=== PATIENT | female | born 1995 | race African-American/Black ===

== ENCOUNTER 2018-12-24 08:26 | Outpatient (CLI) | payer OTHER ==
--- NOTE | 2018-12-24 10:12 | ULT ---
ULTRASOUND OBSTETRICAL COMPLETE: DATE: 12/24/18 HISTORY: Z34.02 encounter for supervision of normal first in second trimester. complete anatomy sizes and dates and cervical length. FINDINGS: number: [place]. lie: Breech. Maternal cervix: 3.5 cm in length and closed. Placenta: Posterior. No placenta previa. Amniotic fluid volume: JORGE L 11.5 cm. heart rate: 150 bpm. The following anatomy is visualized, with no evidence of anomalies: Head, lateral ventricles, cerebellum, nose and lips, spine, upper limbs, lower limbs, four chamber he art, umbilical cord, cord insertion, stomach, kidneys, and bladder. biometry: Head circumference (HC): 16.8 cm 19w 3d Biparietal diameter (BPD): 4.5 cm 19w 4d Abdominal circumference (AC): 13.6 cm 19w 0d Femur length (FL): 3.1 cm 19w 4d Average ultrasound age (AUA): 19w 2d Estimated date of delivery (GABRIEL): 05/18/2019. Last menstrual period (LMP): 08/06/18. Gestational age by LMP: 20w 0d. Estimated weight (EFW): 285 g +/- 42 g (0 lb 10 oz +/- 1 oz). IMPRESSION: 1. Live second trimester intrauterine gestation. 2. Estimated gestational age of 19 weeks, 2 days. 3. Breech lie. 4. No anatomical abnormalities. melany [] POS: [facility]
== END 2018-12-24 08:27 | disposition home or self-care (01) ==
LOC: SCSULT 08:26
PROVIDERS: ATTEND Family Medicine
DX: Z34.02 Encounter for supervision of normal first pregnancy, second trimester (principal); O32.1XX0 Maternal care for breech presentation, not applicable or unspecified; Z3A.19 19 weeks gestation of pregnancy
CPT/HCPCS: 76805

== ENCOUNTER 2019-04-25 13:59 | Day surgery (SDC) | payer OTHER ==
[2019-04-25] MEDS ORDERED: hydrALAZINE 20 MG/ML VIAL SLOW IVP PRN (14:16)
[2019-04-25 14:42] LABS: Amnisure Test No Membranes Rupture (No Rupture)
[2019-04-25 14:43] LABS: Amnisure Internal Control QC ACCEPTABLE (ACCEPTABLE)
[2019-04-25 14:59] VITALS: BMI 26.3
--- NOTE | 2019-04-25 15:20 | PDOC.LDHP ---
Labor and Delivery H&P Chief complaint: loss of fluid HPI: 23 yo F presents for concern of ROM. Pt reports leaking of fluid last night and continued to this am. Pt reports clear fluid. No recent intercourse. Reports vaginal discharge for last 2 weeks. No vaginal bleeding, ctx, pt reports pos movement. No CP, SOB. Current gestational age (weeks): 37 Dating criteria: last menstrual period Grav: 1 Para: 0 Current complications: none Abnormal US findings: No Current medications: pre-nayeli vitamins, iron Previous surgical history: none Allergies/Adverse Reactions: Allergies Allergy/AdvReac Type Severity Reaction Status Date / Time ondansetron [From Zofran] AdvReac Mild Rash Verified 04/25/19 14:44 promethazine [From Phenergan] AdvReac Mild Rash Verified 04/25/19 14:44 Social history: none - Physical Exam Vital signs reviewed and normal: yes General: NAD Heart: RRR Lungs: CTAB Abdomen: gravid Extremeties: no edema FHT: category 1, variability present [place] contractions every: rare - Vaginal Exam cm dilated: 1 Effacement: 25% Station: -3 - OB Labs Blood type: B RH: positive Antibody Screen: negative HIV: negative RPR: negative HEPSAg: negative GBS: negative Urine drug screen: positive (cannabinoids) Rubella: immune - Assessment 1) Vaginal discharge - Plan Plan: other -: 1) Vaginal discharge - concern for ROM; however, no posterior fornix pooling on exam and amnisure negative - check VP3 and plan for DC to home with OP f/u - return precautions reviewed Addendum - Attending - Attending Attestation Date/Time: 04/27/19 0939 I personally evaluated the patient and discussed the management with Dr. Donaldson I agree with the History, Examination, Assessment and Plan documented above with any addition or exceptions noted below. Pt of Dr Villeda. Here for LOF. SSE - neg for pooling, amnisure neg. No evidence of labor. vital sign wnl 111/70 83 18 100% 98.8 fht. baseline 130s mod ltv, + accels-cat one Fetus with reactive nst no evidence of ROM or labor d/c f/u with DR Villeda
== END 2019-04-25 17:28 | disposition home health service (06) ==
LOC: L&D/OP 13:59
PROVIDERS: ATTEND Family Medicine
DX: O99.89 Other specified diseases and conditions complicating pregnancy, childbirth and the puerperium (principal); N89.8 Other specified noninflammatory disorders of vagina; Z3A.37 37 weeks gestation of pregnancy; Z88.8 Allergy status to other drugs, medicaments and biological substances
CPT/HCPCS: 84112; 87480; 87510; 87660; 99284

== ENCOUNTER 2019-05-07 05:58 | Inpatient (IN) | payer OTHER ==
[2019-05-07] MEDS ORDERED: Carboprost 250 MCG/ML AMP IM PRN (07:23)
[2019-05-07] MEDS ORDERED: NS w/ Oxytocin 10 units 500 ML IV SCH ×2 (07:23)
[2019-05-07] MEDS ORDERED: Penicillin G Potassium 5 MILL.UNITS in Sodium Chloride 0.9% 100 ML IVPB SCH (07:23)
[2019-05-07] MEDS ORDERED: Lidocaine 1% (PF) 30 ML VIAL SC PRN (07:23)
[2019-05-07] MEDS ORDERED: HYDROcodone/Acetaminophen 5/325 mg Tablet PO PRN ×2 (07:23→18:13)
[2019-05-07] MEDS ORDERED: Methylergonovine 0.2 MG/ML VIAL IM PRN (07:23)
[2019-05-07] MEDS ORDERED: Promethazine HCl 25 MG/ML VIAL IM PRN ×2 (07:23→10:48)
[2019-05-07] MEDS ORDERED: Diphenoxylate HCl/Atropine Tablet PO PRN (07:23)
[2019-05-07] MEDS ORDERED: NS / Oxytocin 40 units/1000ml 1,000 ML IV PRN (07:23)
[2019-05-07] MEDS ORDERED: hydrALAZINE 20 MG/ML VIAL SLOW IVP PRN ×2 (07:23→18:13)
[2019-05-07] MEDS ORDERED: Butorphanol Tartrate 1 MG/ML VIAL SLOW IVP PRN (07:23)
[2019-05-07] MEDS ORDERED: Ondansetron PF 4 MG/2 ML Vial IVP PRN ×2 (07:23→10:48)
[2019-05-07] MEDS ORDERED: Ibuprofen 800 MG TAB PO PRN (07:23)
[2019-05-07] MEDS ORDERED: Misoprostol 200 MCG TAB PR PRN (07:23)
[2019-05-07 07:38] LABS: Hemoglobin 8.9 g/dL (12.0-16.0); Mean Corpuscular HGB CONC 35.4 g/dL (32.0-36.0); Mean Corpuscular Hemoglobin 32.6 pg (27.0-31.0); Mean Corpuscular Volume 91.9 fL (78.0-98.0); Mean Platelet Volume 8.6 fL (7.4-10.4); Platelet Count 176 thou/uL (130-400); RBC Distribution Width 11.8 % (11.5-14.5); Red Blood Cell (RBC) Count 2.73 mill/uL (4.20-5.40); White Blood Cell (WBC) Count 9.6 thou/uL (4.8-10.8)
[2019-05-07] MEDS: Lactated Ringer's 1,000 ML IV SCH ×2 (07:46→10:46)
[2019-05-07 08:18] LABS: HBSAg Index 0.36 S/CO (0-0.99); Hep B Surf Ag Non-Reactive S/CO (NonReactive); Syphilis Antibody Nonreactive (Nonreactive); Syphilis Antibody Index 0.04 S/CO (<1.00 Non-Reactive)
[2019-05-07] MEDS ORDERED: Fentanyl 4 mcg/Bup 0.1% Cadd 100 ML ONE (09:43)
[2019-05-07] MEDS ORDERED: Fentanyl 100 MCG/2 ML VIAL ONE (10:03)
[2019-05-07] MEDS ORDERED: diphenhydrAMINE 50 MG/ML VIAL IVP PRN (10:48)
[2019-05-07] MEDS ORDERED: Lactated Ringer's 500 ML IV PRN (10:48)
[2019-05-07] MEDS ORDERED: Acetaminophen 325 MG TAB PO PRN (10:48)
[2019-05-07] MEDS ORDERED: ePHEDrine/0.9% NaCl/PF SYRINGE 50 mg/10 ml SLOW IVP PRN (10:48)
[2019-05-07] MEDS ORDERED: Naloxone HCl 0.4 mg/ml Vial IVP PRN ×2 (10:48)
[2019-05-07] MEDS ORDERED: diphenhydrAMINE 50 MG/ML VIAL ONE (10:51)
[2019-05-07] MEDS ORDERED: Communication Order-Pharmacy FS SCH (11:00)
[2019-05-07] MEDS ORDERED: Fentanyl 4 mcg/Bupivacaine 0.1% Cassette 100 ML EPIDURAL SCH (11:00)
[2019-05-07] MEDS ORDERED: Penicillin G 2.5 MILL.units 2.5 MILL.UNITS in Premix Bag 1 BAG IVPB SCH (12:00)
[2019-05-07] MEDS ORDERED: diphenhydrAMINE 25 MG CAP PO PRN (18:13)
[2019-05-07] MEDS ORDERED: Lanolin Ointment 7 GM TUBE TOP PRN (18:13)
[2019-05-07] MEDS ORDERED: Bisacodyl 10 MG SUPP PR PRN (18:13)
[2019-05-07] MEDS ORDERED: Milk Of Magnesia 30 ML UDCUP PO PRN (18:13)
[2019-05-07] MEDS ORDERED: Benzocaine-Menthol 82.5 ML CAN TOP PRN (18:13)
[2019-05-07] MEDS ORDERED: NS / Oxytocin 40 units/1000ml 1,000 ML IV SCH (18:30)
[2019-05-07] MEDS: Ibuprofen 800 MG TAB PO SCH (20:01)
[2019-05-07] MEDS ORDERED: Adacel (T-DAP) 0.5 ML SYRINGE IM ONE (21:00)
[2019-05-08] MEDS: Ibuprofen 800 MG TAB PO SCH ×3 (05:26→21:11)
[2019-05-08] MEDS: Docusate Calcium (SURFAK) 240 MG CAP PO SCH ×3 (05:27→21:11)
[2019-05-08 05:55] LABS: Hemoglobin 8.6 g/dL (12.0-16.0); Mean Corpuscular HGB CONC 35.7 g/dL (32.0-36.0); Mean Corpuscular Hemoglobin 33.1 pg (27.0-31.0); Mean Corpuscular Volume 92.7 fL (78.0-98.0); Mean Platelet Volume 8.9 fL (7.4-10.4); Platelet Count 170 thou/uL (130-400); RBC Distribution Width 11.7 % (11.5-14.5)
[2019-05-08] MEDS: Prenatal Vitamin 1 TAB PO SCH (08:50)
[2019-05-08] MEDS: Ferrous Sulfate 325 MG TAB PO SCH ×2 (08:50→17:54)
[2019-05-08] MEDS: HYDROcodone/Acetaminophen 5/325 mg Tablet PO PRN ×2 (10:58→23:07)
[2019-05-09] MEDS: Ibuprofen 800 MG TAB PO SCH ×2 (05:08→14:17)
[2019-05-09 09:50] VITALS: BP 110/51; TEMP 98.3
[2019-05-09] MEDS: Ferrous Sulfate 325 MG TAB PO SCH (10:24)
[2019-05-09] MEDS: Prenatal Vitamin 1 TAB PO SCH (10:24)
[2019-05-09] MEDS: Docusate Calcium (SURFAK) 240 MG CAP PO SCH (10:24)
== END 2019-05-09 16:19 | disposition home or self-care (01) | DRG 807 ==
LOC: L&D 05:58 → 3SW 21:59
PROVIDERS: ADMIT Family Medicine; ATTEND Family Medicine
PROC: 10E0XZZ Delivery of Products of Conception, External Approach (ICD-10-PCS; principal; 2019-05-07)
PROC: 10907ZC Drainage of Amniotic Fluid, Therapeutic from Products of Conception, Via Natural or Artificial Opening (ICD-10-PCS; 2019-05-07)
PROC: 3E033VJ Introduction of Other Hormone into Peripheral Vein, Percutaneous Approach (ICD-10-PCS; 2019-05-07)
DX: O70.0 First degree perineal laceration during delivery (principal); Z37.0 Single live birth; Z3A.39 39 weeks gestation of pregnancy
CPT/HCPCS: 36415; 51702; 85027; 86780; 86850; 86900; 86901; 87340; J1200; J2590; J3010